=== PATIENT | male | born 1950 | race Caucasian/White ===

== ENCOUNTER 2018-02-18 15:42 | Inpatient (IN) | payer OTHER ==
[~2018-02-18] VITALS: Ht 188 cm; Wt 101.8 kg
--- NOTE | ~2018-02-18 | 2DMMODE ---
[facility] [address] [place] [address] 2 D/M-MODE ECHOCARDIOGRAM Name: DANE MONTE Room #: 356-P ADM IN .#: [id number] Admission: 02/18/18 Attend Phys: Micki Jarquin Discharge: Date of : 46 Date of Service: 02/19/18 1259 Report #: [id number] THIS REPORT FOR: //name// APPROVED REPORT Study performed: 02/19/2018 10:36:56 EXAM: Comprehensive 2D, Doppler, and color-flow Echocardiogram Patient Location: In-Patient Room #: 356 Status: routine BSA: 2.28 HR: 71 bpm BP: 114/63 mmHg Other Information Study Quality: Good Indications hypoxia 2D Dimensions RVDd: 34.65 mm IVSd: 13.62 (7-11mm) LVOT Diam: 23.52 (18-24mm) LVDd: 45.03 mm PWd: 12.54 (7-11mm) Ascending Ao: 31.79 (22-36mm) LVDs: 27.84 (25-40mm) Aortic Root: 34.29 mm IVC: 15.00 mm Volumes Left Atrial Volume (Systole) Single Plane 4CH: 43.82 mL Single Plane 2CH: 38.09 mL LA ESV Index: 20.00 mL/m2 Aortic Valve AoV Peak Skip.: 1.52 m/s AO Peak Gr.: 9.22 mmHg LVOT Max P.53 mmHg LVOT Max V: 1.18 m/s BRENDA Vmax: 3.36 cm2 Mitral Valve E/A Ratio: 1.2 MV Decel. Time: 205.45 ms MV E Max Skip.: 0.86 m/s MV A Skip.: 0.72 m/s [facility] [place] [address] 2 D/M-MODE ECHOCARDIOGRAM Name: DANE MONTE Room #: 356-P [facility] IN .R.#: [id number] Admission: 02/18/18 Attend Phys: Micki Jarquin Discharge: Date of : 46 Date of Service: 02/19/18 1259 Report #: [id number] PHT: 59.58 ms IVRT: 79.58 ms Pulmonary Valve PV Peak Skip.: 1.01 m/s PV Peak Gr.: 4.09 mmHg Pulmonary Vein P Vein S: 0.64 m/s P Vein A: 0.38 m/s P Vein D: 0.52 m/s P Vein A Dur.: 124.6 msec P Vein S/D Ratio: 1.23 Tricuspid Valve TR Peak Skip.: 2.96 m/s RAP Estimate: 5.00 mmHg TR Peak Gr.: 35.11 mmHg PA Pressure: 40.00 mmHg Left Ventricle The left ventricle is normal size. Mild concentric left ventricular hypertrophy. The left ventricular systolic function is normal. The left ventricular ejection fraction is within the normal range. LVEF is 60-65%. Right Ventricle The right ventricle is normal size. The right ventricular systolic function is normal. Atria The left atrium size is normal. The right atrium size is normal. Aortic Valve The aortic valve is normal in structure. No aortic regurgitation is present. There is no aortic valvular stenosis. Mitral Valve The mitral valve is normal in structure. There is no mitral valve regurgitation noted. No evidence of mitral valve stenosis. Tricuspid Valve The tricuspid valve is normal in structure. Trace tricuspid regurgitation. PAP is estimated at 40 mmHg. Pulmonic Valve The pulmonary valve is normal in structure. There is no pulmonic valvular regurgitation. [place] [id number] 2 D/M-MODE ECHOCARDIOGRAM Name: DANE MONTE Room #: 356-P [facility] IN ..#: [id number] Admission: 02/18/18 Attend Phys: Micki Jarquin Discharge: Date of : 46 Date of Service: 02/19/18 1259 Report #: [id number] Great Vessels The aortic root is normal in size. IVC is normal in size and collapses >50% with inspiration. Pericardium There is no pericardial effusion. <Conclusion> The left ventricle is normal size. Mild concentric left ventricular hypertrophy. The left ventricular systolic function is normal. The right ventricle is normal size. The left atrium size is normal. The aortic valve is normal in structure. The mitral valve is normal in structure. Trace tricuspid regurgitation. PAP is estimated at 40 mmHg. <ELECTRONICALLY SIGNED> By: Yrn Darnell MD 02/19/18 1259 1259 1259 Yrn Darnell MD /INF
--- NOTE | ~2018-02-18 | HC ---
[facility] [place] [address] CONSULTATION Name: DANE MONTE Room #: 356-P ADM IN M.R.#: [id number] Admission: 02/18/18 Attend Phys: Jeffrey Reyes MD Discharge: Date of : 46 Report #: [id number] THIS REPORT FOR: //name// CC: Jeffrey Umaña PRIMARY CARE PHYSICIAN: Dr. Reyes. REASON FOR REFERRAL: Hypoxia. HISTORY OF PRESENT ILLNESS: The patient is a 67-year-old white male who was brought to the Emergency Room with acute choking episode, hypoxia. Pulmonary consultation was requested. The patient underwent knee surgery 2 days ago at the [facility]. Yesterday morning, he was having burrito breakfast. Immediately, he choked and was unable to breathe. He was said to be cyanotic. Heimlich maneuver was given. His saturation was said to be in 60% area. He was sent to the Emergency Room. In the ER, the patient was placed on nonrebreather. Saturation improved to low 90%. A CT chest and chest x-ray shows bilateral interstitial infiltrates. No evidence of pulmonary embolus. The patient was then given low dose Lasix along with broad-spectrum antibiotics. PAST MEDICAL HISTORY: Notable for osteoarthritis involving knees, undergoing a left knee surgery 2 days ago, hypertension, diabetes mellitus type 2. PAST SURGICAL HISTORY: As mentioned above. ALLERGIES: None to medications. HOME MEDICATIONS: Lists are reviewed. These include Zocor, Prinivil, Percocet, Zoloft, metformin, Onglyza, Levemir, Invokana. FAMILY HISTORY: Noncontributory. Both parents . SOCIAL HISTORY: Born and raised in [place], [place]. 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 He is and lives with his . He denies any tobacco or alcohol use. REVIEW OF SYSTEMS: As mentioned above, otherwise 10-point system review negative. [facility] [address] [place] [address] CONSULTATION Name: DANE MONTE Room #: 356-P [facility] IN ..#: [id number] Admission: 02/18/18 Attend Phys: Jeffrey Reyes MD Discharge: Date of : 46 Report #: [id number] PHYSICAL EXAMINATION: GENERAL: He is awake, alert, appears mildly dyspneic, in no distress. VITAL SIGNS: Temperature is 98 degrees Fahrenheit, pulse is 75, respiratory rate is 24, blood pressure 100/56 mmHg, saturation 95%. HEENT: Normocephalic, atraumatic. NECK: Supple, without lymphadenopathy or thyromegaly. CHEST: Breath sounds are good with a few scattered crackles in the left base. No wheezes. CARDIOVASCULAR: Heart sounds normal S1, S2. No murmurs or gallop. There is no JVD. There is no carotid bruit. Pulses are 2+/4+ bilaterally. ABDOMEN: Soft, nontender, no organomegaly or masses felt. GENITOURINARY: Deferred. RECTAL: Deferred. EXTREMITIES: No edema, cyanosis or clubbing. LABORATORY DATA: CT chest and chest x-ray as mentioned above showing bilateral patchy infiltrates. Electrolytes: Sodium 135, potassium 4.5, chloride 103, CO2 23, BUN is 33, creatinine is 1.9. WBC 9700, hemoglobin is 11.2, platelets are normal. INR is 1.3. IMPRESSION: 1. Acute hypoxic respiratory failure in this 67-year-old white male. He had knee surgery 2 days ago. He choked while eating breakfast. Chest CT and chest x-ray as mentioned above. The patient likely has negative pressure pulmonary edema. Cannot rule out possibility of aspiration. 2. Status post left knee surgery 2 days ago. 3. Renal insufficiency. Unclear if this is acute or chronic. He does not have any history of chronic renal disease. May be related to his acute hypoxic episode. We will need to monitor closely. 4. Diabetes mellitus type 2. 5. Hypertension. RECOMMENDATION: Agree with gentle diuresis. Given the clinical presentation, would also continue broad-spectrum antibiotics, specifically to cover for gram-negative, anaerobes. Continue DVT prophylaxis as you are. I will also obtain echocardiogram regarding LV function. Wean O2 for saturation 90%. From yesterday to this morning, the patient appears much improved requiring less O2. He should improve over the next 1-2 days. Preference will be to observe the patient over 24-48 hours to show continued improvement in his clinical status. [address] [address] CONSULTATION Name: DANE MONTE Room #: 356-P ADM IN M.R.#: [id number] Admission: 02/18/18 Attend Phys: Jeffrey Reyes MD Discharge: Date of : 46 Report #: [id number] Thank you for this consultation. <ELECTRONICALLY SIGNED> By: Deion Rendon MD 02/20/18 1757 1050 1428 Deion Rendon MD /nt
--- NOTE | ~2018-02-18 | H ---
[facility] [address] HISTORY AND PHYSICAL Name: DANE MONTE Room #: 356-P ADM IN M.R.#: [id number] Admission: 02/18/18 Attend Phys: Jeffrey Reyes MD Discharge: Date of : 46 Report #: [id number] THIS REPORT FOR: //name// CC: Jeffrey Umaña DATE OF SERVICE: 02/18/2018 CHIEF COMPLAINT: Shortness of breath. HISTORY OF PRESENT ILLNESS: The patient is a 67-year-old gentleman who was admitted to the ER from [facility] for evaluation of shortness of breath. He underwent a left total knee replacement 2 days ago and then yesterday, he suddenly became short of breath. The report was he was eating and may have aspirated on some food. He had worked with physical therapy, but upon returning from , his O2 sats dropped into the 60s and he was sent emergently to ER. He was placed on a nonrebreather oxygen mask for sats just in the low 90s. PAST MEDICAL HISTORY: Hypertension, diabetes type 2, osteoarthritis. PAST SURGICAL HISTORY: As above. FAMILY HISTORY: Noncontributory. SOCIAL HISTORY: He is , lives with his . No chronic alcohol or tobacco use. ALLERGIES: None. MEDICATIONS: Zocor 40 mg, Prinivil 20 mg, Percocet 5 mg, Zoloft 50 mg, metformin 1000 mg b.i.d., Onglyza 5 mg, Levemir 60 units at bedtime, Invokana 300 mg daily. REVIEW OF SYSTEMS: He denies headache, chest pain, abdominal pain, nausea, vomiting, diarrhea, constipation, dysuria, syncope. PHYSICAL EXAMINATION: VITAL SIGNS: Temperature 36.6, pulse 72, respirations 16, blood pressure 114/63, O2 sat 95% on 4 liters nasal cannula. GENERAL: He is awake and alert, in no distress. HEAD AND NECK: Unremarkable. LUNGS: Clear anteriorly. HEART: Regular, no murmur. ABDOMEN: Obese, soft, normoactive bowel sounds. EXTREMITIES: No cyanosis, clubbing or edema. The left knee incision is intact. [address] [address] HISTORY AND PHYSICAL Name: DANE MONTE Room #: 356-P [facility] IN ..#: [id number] Admission: 02/18/18 Attend Phys: Jeffrey Reyes MD Discharge: Date of : 46 Report #: [id number] NEUROLOGIC: Cranial nerves intact. Speech is fluent. Motor strength 5/5 throughout. LABORATORY REVIEW: Creatinine is 1.9. White count is 9. Chest x-ray showing a right lung infiltrate and left lung atelectasis. CTA of the chest showed multifocal pneumonia. There is no pulmonary embolus. ASSESSMENT: 1. Aspiration pneumonia. 2. Acute hypoxic respiratory failure. 3. Acute kidney injury. 4. Diabetes type 2. 5. Hypertension. 6. Recent left total knee replacement. PLAN: I am going to hold his antidiabetic medication for now given elevated creatinine, low dose IV fluids, some of this may be prerenal status from surgery, but he did have a CTA through ER yesterday to rule out pulmonary embolus. Physical therapy to be consulted. Dr. Rendon has assessed him as well. We will continue IV antibiotics, Lovenox for DVT prophylaxis. <ELECTRONICALLY SIGNED> By: Jeffrey Reyes MD 02/20/18 1120 1009 1024 Jeffrey Reyes MD /nt
--- NOTE | ~2018-02-18 | EKG ---
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
[2018-02-18 15:42] VITALS: BP 105/53
[2018-02-18 16:04] LABS: ABSOLUTE NEUTROPHILS 5.9 thou/uL (1.4-8.2); BASOPHILS 0.5 % (0.0-2.0); EOSINOPHILS 0.1 % (0.0-3.0); HEMATOCRIT 39.5 % (42.0-52.0); HEMOGLOBIN 13.2 gm/dL (14.0-18.0); LYMPHOCYTES 10.6 % (24.0-44.0); MCH 28.7 pg (26.0-34.0); MCHC 33.5 g/dL (28.0-37.0); MCV 85.8 fL (80.0-100.0); MONOCYTES 3.3 % (1.0-8.0); PLATELET COUNT 203 thou/uL (150-400); POLYS 85.5 % (36.0-66.0); RDW 14.2 % (10.5-14.5); WBC 6.9 thou/uL (4.0-11.0)
[2018-02-18 16:11] LABS: ANION GAP 13 mmol/L (7-16); BUN 39 mg/dL (7-18); CALCIUM 8.6 mg/dL (8.5-10.1); CHLORIDE 102 mmol/L (98-107); CO2 22 mmol/L (21-32); CREATININE 1.8 mg/dL (0.7-1.3); GLUCOSE 213 mg/dL (74-106); POTASSIUM 4.5 mmol/L (3.5-5.1); SODIUM 137 mmol/L (136-145)
[2018-02-18 16:19] LABS: TROPONIN-I <0.06 ng/mL (<0.06)
[2018-02-18 16:23] LABS: APTT 28.5 Seconds (24.5-32.8); INR 1.3
[2018-02-18 18:56] VITALS: BP 106/57
[2018-02-18 19:47] VITALS: BP 96/51
[2018-02-18 20:01] VITALS: BP 101/58
[2018-02-18] MEDS ORDERED: ZOCOR40 MG PO (20:24)
[2018-02-18] MEDS ORDERED: PRINIVIL20 MG PO (20:25)
[2018-02-18] MEDS ORDERED: ONGLYZA5 MG (20:26)
[2018-02-18] MEDS ORDERED: GLUCOPHAGE XR500 MG PO (20:27)
[2018-02-18] MEDS ORDERED: INVOKANA300 MG PO (20:28)
[2018-02-18] MEDS ORDERED: SERTRALINE HCL50 MG PO (20:29)
[2018-02-18] MEDS ORDERED: PERCOCET PO (20:57)
[2018-02-19] VITALS: BP 103/56
[2018-02-19 03:45] VITALS: BP 103/56
[2018-02-19 06:21] LABS: HEMATOCRIT 33.1 % (42.0-52.0); MCHC 33.8 g/dL (28.0-37.0); RBC 3.85 mil/uL (4.50-6.00); RDW 14.3 % (10.5-14.5); WBC 9.7 thou/uL (4.0-11.0)
[2018-02-19 06:23] LABS: HEMOGLOBIN 11.2 gm/dL (14.0-18.0)
[2018-02-19 06:35] LABS: CALCIUM 8.4 mg/dL (8.5-10.1); CREATININE 1.9 mg/dL (0.7-1.3); POTASSIUM 4.2 mmol/L (3.5-5.1)
[2018-02-19 07:27] VITALS: BP 114/63
[2018-02-19] MEDS ORDERED: LEVEMIR SUBQ (08:30)
[2018-02-19 11:21] VITALS: BP 129/81
[2018-02-19 15:37] VITALS: BP 126/51
[2018-02-19 20:00] VITALS: BP 114/70
[2018-02-20 05:00] VITALS: BP 123/76
[2018-02-20 06:22] LABS: HEMATOCRIT 33.7 % (42.0-52.0); MCH 28.4 pg (26.0-34.0); MCHC 32.8 g/dL (28.0-37.0); MCV 86.7 fL (80.0-100.0); RBC 3.88 mil/uL (4.50-6.00); RDW 14.4 % (10.5-14.5); WBC 8.5 thou/uL (4.0-11.0)
[2018-02-20 06:35] LABS: CALCIUM 8.5 mg/dL (8.5-10.1); CREATININE 1.5 mg/dL (0.7-1.3)
[2018-02-20 08:14] VITALS: BP 126/67
[2018-02-20 15:58] VITALS: BP 136/62
[2018-02-20 19:19] VITALS: BP 135/70
[2018-02-21 04:31] VITALS: BP 141/70
[2018-02-21 05:44] LABS: CALCIUM 8.6 mg/dL (8.5-10.1); CREATININE 1.2 mg/dL (0.7-1.3); POTASSIUM 4.4 mmol/L (3.5-5.1)
[2018-02-21 07:42] VITALS: BP 146/72
[2018-02-21 10:59] VITALS: BP 146/72
[2018-02-21 11:23] VITALS: BP 146/72
== END 2018-02-21 11:20 | disposition home or self-care (01) | DRG 177 ==
LOC: ER 15:42 → 3W 18:08 → EROBS 18:08 → 3W 19:49
PROVIDERS: Emergency Medicine; Internal Medicine Geriatric Medicine; Internal Medicine Pulmonary Disease
DX: J69.0 Pneumonitis due to inhalation of food and vomit (principal); J96.01 Acute respiratory failure with hypoxia; N17.9 Acute kidney failure, unspecified; M17.0 Bilateral primary osteoarthritis of knee; I10 Essential (primary) hypertension; E11.9 Type 2 diabetes mellitus without complications; N28.9 Disorder of kidney and ureter, unspecified; Z96.652 Presence of left artificial knee joint; Z79.899 Other long term (current) drug therapy
CPT/HCPCS: 10879